=== PATIENT | male | born 1975 | race Caucasian/White ===

== ENCOUNTER 2019-07-25 12:59 | Inpatient (IN) | payer MEDICAID ==
[~2019-07-25] VITALS: Ht 162.6 cm; Wt 52.8 kg
[2019-07-25] MEDS ORDERED: IBUPROFEN 600MG TABLET PO STA (14:16)
[2019-07-25 14:33] LABS: HEMATOCRIT. 26.7 % (42.0-52.0); HEMOGLOBIN. 9.4 g/dL (14.0-18.0); MEAN CORPUSCULAR VOLUME 85.1 fL (80.0-94.0); MEAN PLATELET VOLUME 9.1 fl (7.4-10.4); PLATELET 313 x1000/uL (130-400); RED BLOOD CELL COUNT 3.13 mill/uL (4.7-6.1)
[2019-07-25 14:36] LABS: CHLORIDE 106 mEq/L (98-107)
[2019-07-25 14:39] LABS: ETHANOL BLOOD < 10 mg/dL
[2019-07-25 15:23] LABS: PLATELET ESTIMATE NORMAL
[2019-07-25] MEDS ORDERED: SODIUM CHLORIDE 0.9% 1,000 ML IV ONE (17:07)
[2019-07-25] MEDS ORDERED: ONDANSETRON HCL 4MG/2ML INJ IV STA (17:07)
[2019-07-25] MEDS ORDERED: MORPHINE SULFATE 4 MG/ML CPJ (NOT FOR IM USE) IV STA (17:07)
[2019-07-25] MEDS ORDERED: DEXT 5%/LACTATED RINGERS 1,000 ML IV SCH (17:34)
[2019-07-25] MEDS ORDERED: ONDANSETRON HCL 4MG/2ML INJ IV PRN (17:45)
[2019-07-25] MEDS ORDERED: LORAZEPAM 2MG/ML CPJ IV PRN (17:45)
[2019-07-25] MEDS ORDERED: ZOLPIDEM TARTRATE 5MG TABLET PO PRN (17:45)
[2019-07-25] MEDS ORDERED: IPRATROPIUM/ALBUTEROL 0.5-3(2.5)MG/3ML NEB NEB PRN (17:45)
[2019-07-25] MEDS ORDERED: NITROGLYCERIN 0.4MG TABLET SL SL PRN (17:45)
[2019-07-25] MEDS ORDERED: MORPHINE SULFATE 2 MG/ML CPJ (NOT FOR IM USE) IV PRN (17:45)
[2019-07-25] MEDS ORDERED: KETOROLAC 15MG/ML VIAL IV PRN (17:45)
[2019-07-25] MEDS ORDERED: ACETAMINOPHEN 650MG SUPP PR PRN (17:45)
[2019-07-25 17:56] LABS: CLARITY URINE CLEAR (CLEAR); COLOR URINE DARK YELLOW (YELLOW); KETONES URINE NEGATIVE (NEGATIVE); LEUKOCYTE ESTERASE URINE NEGATIVE (NEGATIVE); NITRITE URINE NEGATIVE (NEGATIVE); OCCULT BLOOD URINE NEGATIVE (NEGATIVE); PH URINE 5.5 (4.5-8.0); PROTEIN URINE TRACE (NEGATIVE); SPECIFIC GRAVITY URINE 1.021 (1.005-1.030); UROBILINOGEN URINE 0.2 E.U./dL (0.2-1.0)
[2019-07-25] MEDS ORDERED: ENOXAPARIN 40MG/0.4ML SYR SUBCUT SCH (18:00)
[2019-07-25 18:08] LABS: *BARBITURATES SCREEN URINE NEGATIVE (NEGATIVE); *BENZODIAZEPINES SCREEN URINE NEGATIVE (NEGATIVE); *COCAINE SCREEN URINE NEGATIVE (NEGATIVE)
[2019-07-25 18:09] LABS: *AMPHETAMINES SCREEN URINE NEGATIVE (NEGATIVE); CANNABINOID URINE SCREEN PRESUMTIVE POSITIVE (NEGATIVE); METHADONE URINE SCREEN NEGATIVE (NEGATIVE); OPIATES URINE SCREEN NEGATIVE (NEGATIVE); PHENCYCLIDINE URINE SCREEN NEGATIVE (NEGATIVE)
[2019-07-25 18:34] LABS: TOTAL IRON BINDING CAPACITY 173 ug/dL (250-450)
[2019-07-25 18:37] LABS: FOLIC ACID (FOLATE) SERUM 19.8 ng/mL (>5.38)
[2019-07-25] MEDS ORDERED: [UNRECOGNIZED DRUG - OTHER] PO (22:34)
[2019-07-25] MEDS ORDERED: IBUP-2029 MT (22:34)
[2019-07-25] MEDS ORDERED: [UNRECOGNIZED DRUG - OTHER] PO (22:34)
[2019-07-25] MEDS ORDERED: DOLU50TA PO (22:34)
[2019-07-25] MEDS ORDERED: GABA-531 PO (22:34)
[2019-07-25] MEDS ORDERED: EMTR1TAB12 MT (22:34)
[2019-07-25] MEDS ORDERED: ACET160S2 PO (22:34)
[2019-07-25 23:03] VITALS: BP 124/85
[2019-07-26] VITALS: BP 124/85
[2019-07-26 04:00] VITALS: BP 124/81
[2019-07-26 07:37] LABS: CHLORIDE 110 mEq/L (98-107)
[2019-07-26 07:54] LABS: AMYLASE 123 IU/L (25-115)
[2019-07-26 08:00] VITALS: BP 123/79
[2019-07-26] MEDS ORDERED: PANTOPRAZOLE SODIUM 40 MG/VIAL IV SCH (09:00)
[2019-07-26] MEDS ORDERED: KCL 20MEQ/100ML PREMIX 100 ML IV NR (10:00)
[2019-07-26 10:21] VITALS: BP 123/79
== END 2019-07-26 10:38 | disposition home or self-care (01) | DRG 247 ==
LOC: ER 13:19 → 6EST 17:08 → ENRESERV 20:42
PROVIDERS: ADMIT Internal Medicine; ATTEND Internal Medicine
PROC: 0D9670Z Drainage of Stomach with Drainage Device, Via Natural or Artificial Opening (ICD-10-PCS; principal; 2019-07-25)
DX: K56.609 Unspecified intestinal obstruction, unspecified as to partial versus complete obstruction (principal); E43 Unspecified severe protein-calorie malnutrition; B20 Human immunodeficiency virus [HIV] disease; D63.8 Anemia in other chronic diseases classified elsewhere; K56.7 Ileus, unspecified; Z59.0 Homelessness; Z88.2 Allergy status to sulfonamides; Z88.8 Allergy status to other drugs, medicaments and biological substances; Z79.899 Other long term (current) drug therapy; Z68.20 Body mass index [BMI] 20.0-20.9, adult
CPT/HCPCS: 36415; 74176; 80305; 80307; 80320; 80329; 81003; 82150; 82607; 82746; 83036; 83540; 83550; 87493; 93970; 96360; 99285; C9113; J2270; J2405; J3480; J7030; G0480